=== PATIENT | male | born 1970 | race African-American/Black ===

== ENCOUNTER 2024-06-26 18:30 | Inpatient (IN) | payer OTHER ==
[~2024-06-26] VITALS: Ht 185.4 cm; Wt 89.2 kg
[~2024-06-26 18:30] MED LIST: ASCO-339 PO; DARU800T PO; DOLU50TA PO; ERGO1250 PO; PANTOPRAZOLE 80 MG in SODIUM CHLORIDE 0.9% 100 ML IV SCH; RITO100T PO; SUCR1TAB PO; [UNRECOGNIZED DRUG - OTHER] PO; prenatal vitamin PO
[2024-06-26] MEDS: PANTOPRAZOLE SODIUM 40 MG/VIAL IV STA (19:00)
[2024-06-26] MEDS: SODIUM CHLORIDE 0.9% 1,000 ML IV ONE (19:01)
[2024-06-26 20:24] LABS: MEAN CORPUSCULAR HEMOGLOBIN 29.8 pg (28.0-32.0); MEAN CORPUSCULAR HGB CONC 32.6 g/dL (31.0-37.0); MEAN CORPUSCULAR VOLUME 91.4 fL (80.0-94.0); MEAN PLATELET VOLUME 7.5 fl (7.4-10.4); PLATELET 400 x1000/uL (130-400); RED BLOOD CELL COUNT 1.98 mill/uL (4.7-6.1); WHITE BLOOD COUNT 19.2 x1000/uL (4.5-11.0)
[2024-06-26 20:26] LABS: DIFFERENTIAL COMMENT 1; HEMATOCRIT. 18.1 % (42.0-52.0); HEMOGLOBIN. 5.9 g/dL (14.0-18.0)
[2024-06-26 20:33] LABS: CHLORIDE 109 mEq/L (98-107); POTASSIUM 3.6 mEq/L (3.5-5.1); SODIUM 138 mEq/L (136-145)
[2024-06-26 20:35] LABS: CALCIUM 7.7 mg/dL (8.7-10.4); CARBON DIOXIDE 22 mEq/L (21-32); INR 1.2; PARTIAL THROMBOPLASTIN TIME 31.4 sec (23.4-31.0); PROTHROMBIN TIME 12.9 sec (9.6-11.0)
[2024-06-26 20:38] LABS: ANISOCYTOSIS 1+; PLATELET ESTIMATE NORMAL
[2024-06-26 20:40] LABS: GLUCOSE 127 mg/dL (70-105); UREA NITROGEN BLOOD 37 mg/dL (9-23)
[2024-06-26 20:42] LABS: ALANINE AMINOTRANSFERASE < 7 IU/L (10-49); ALBUMIN 2.4 g/dL (3.2-4.8); ASPARTATE AMINOTRANSFERASE 9 IU/L (<34); BILIRUBIN DIRECT < 0.1 mg/dL (<=3.0); BILIRUBIN TOTAL 0.2 mg/dL (0.1-1.0); PROTEIN TOTAL 4.9 g/dL (6.0-8.3); TROPONIN I HIGH SENSITIVITY 5 ng/L (3.0-53)
[2024-06-26] MEDS ORDERED: PANTOPRAZOLE 80 MG in SODIUM CHLORIDE 0.9% 100 ML IV SCH (20:45)
[2024-06-26] MEDS ORDERED: CEFTRIAXONE 2GM/50ML 50 ML IV NR (20:45)
[2024-06-26 21:04] LABS: CREATININE 5.7 mg/dL (0.6-1.3)
[2024-06-26] MEDS ORDERED: SODIUM BICARBONATE 50 MEQ in DEXT 5%/0.45% NACL 1000ML 1,000 ML IV SCH (21:30)
[2024-06-26] MEDS ORDERED: SODIUM CHLORIDE 0.9% 1,000 ML IV ONE (23:15)
[2024-06-26] MEDS ORDERED: IPRATROPIUM/ALBUTEROL 0.5-3(2.5)MG/3ML NEB HHN PRN (23:15)
[2024-06-26] MEDS ORDERED: ONDANSETRON HCL 4MG/2ML INJ IV PRN (23:15)
[2024-06-26] MEDS ORDERED: ACETAMINOPHEN 325MG TABLET PO PRN (23:15)
[2024-06-26] MEDS ORDERED: CEFTRIAXONE 1GM/50ML 50 ML IV SCH (23:30)
[2024-06-26 23:32] LABS: TROPONIN I HIGH SENSITIVITY 6 ng/L (3.0-53)
[2024-06-26 23:40] LABS: CLARITY URINE CLEAR (CLEAR); COLOR URINE YELLOW (YELLOW); GLUCOSE URINE NEGATIVE (NEGATIVE); KETONES URINE NEGATIVE (NEGATIVE); LEUKOCYTE ESTERASE URINE NEGATIVE (NEGATIVE); NITRITE URINE NEGATIVE (NEGATIVE); OCCULT BLOOD URINE NEGATIVE (NEGATIVE); PH URINE 5.5 (4.5-8.0); PROTEIN URINE 1+ (NEGATIVE); SPECIFIC GRAVITY URINE 1.011 (1.005-1.030); UROBILINOGEN URINE 0.2 E.U./dL (0.2-1.0)
[2024-06-27] VITALS (8 sets, daily range): BP systolic 102–117; BP diastolic 59–84; PULSE 63–110; RESP 15–20; TEMP 36.33624–37.3; O2SAT 100
[2024-06-27 00:02] LABS: BACTERIA URINE NONE SEEN; FINE GRANULAR CASTS URINE 0-5 /lpf; RBC URINE NONE SEEN /hpf (0-2); SQUAMOUS EPITHELIAL CELL URINE RARE /lpf (RARE/1+); WBC URINE 0-2 /hpf (0-2)
[2024-06-27 00:03] LABS: HEPATITIS B SURFACE ANTIGEN NEGATIVE (Negative)
[2024-06-27 00:23] LABS: HEPATITIS A AB IGM NEGATIVE (Negative)
[2024-06-27 00:24] LABS: HEPATITIS B CORE AB IGM NEGATIVE (Negative); HEPATITIS C AB NON REACTIVE (Neg) (Negative)
[2024-06-27] MEDS: SODIUM BICARBONATE 50 MEQ in DEXT 5%/0.45% NACL 1000ML 1,000 ML IV SCH (00:28)
[2024-06-27] MEDS: CALCIUM GLUCONATE 1GM PREMIX 50 ML IV NR (00:30)
[2024-06-27] MEDS ORDERED: SEVELAMER (01:43)
[2024-06-27] MEDS ORDERED: MELO-106 PO (01:43)
[2024-06-27] MEDS ORDERED: POTASSIUM (01:43)
[2024-06-27] MEDS ORDERED: LORA10TA7 PO (01:43)
[2024-06-27] MEDS ORDERED: ASCO500T20 PO (01:43)
[2024-06-27] MEDS ORDERED: BENZ100C86 PO (01:43)
[2024-06-27] MEDS ORDERED: [UNRECOGNIZED DRUG - CODE] (01:43)
[2024-06-27] MEDS ORDERED: PRENATAL (01:43)
[2024-06-27] MEDS ORDERED: NAPR-681 PO (01:43)
[2024-06-27] MEDS ORDERED: CYAN-50 PO (01:43)
[2024-06-27] MEDS ORDERED: ALBUTEROL (01:43)
[2024-06-27 02:39] LABS: HEMATOCRIT 23.7 % (42.0-52.0)
[2024-06-27 02:59] LABS: PHOSPHORUS 4.4 mg/dL (2.5-4.9)
[2024-06-27] MEDS: CEFTRIAXONE 1GM/50ML 50 ML IV SCH (03:35)
[2024-06-27 06:49] LABS: CARBON DIOXIDE 21 mEq/L (21-32); CHLORIDE 111 mEq/L (98-107); POTASSIUM 3.8 mEq/L (3.5-5.1); SODIUM 141 mEq/L (136-145)
[2024-06-27 06:50] LABS: CALCIUM 7.4 mg/dL (8.7-10.4)
[2024-06-27 06:52] LABS: TRIGLYCERIDE 122 mg/dL (0-150)
[2024-06-27 06:53] LABS: HEMATOCRIT. 21.8 % (42.0-52.0); HEMOGLOBIN. 7.3 g/dL (14.0-18.0); MEAN CORPUSCULAR HEMOGLOBIN 28.1 pg (28.0-32.0); MEAN CORPUSCULAR HGB CONC 33.5 g/dL (31.0-37.0); MEAN CORPUSCULAR VOLUME 84.1 fL (80.0-94.0); PLATELET 318 x1000/uL (130-400); RED BLOOD CELL COUNT 2.59 mill/uL (4.7-6.1); RED CELL DISTRIBUTION WIDTH 19.2 % (11.6-14.6); WHITE BLOOD COUNT 15.5 x1000/uL (4.5-11.0)
[2024-06-27 06:54] LABS: UREA NITROGEN BLOOD 51 mg/dL (9-23)
[2024-06-27 06:55] LABS: GLUCOSE 100 mg/dL (70-105)
[2024-06-27 06:56] LABS: ALANINE AMINOTRANSFERASE < 7 IU/L (10-49); LDL CHOLESTEROL 55 mg/dL (5-100); T4 FREE 1.37 ng/dL (0.89-1.76)
[2024-06-27 06:57] LABS: ALBUMIN 2.2 g/dL (3.2-4.8); ASPARTATE AMINOTRANSFERASE 9 IU/L (<34); BILIRUBIN DIRECT < 0.1 mg/dL (<=3.0); BILIRUBIN TOTAL 0.3 mg/dL (0.1-1.0); CHOLESTEROL 104 mg/dL (<200); HDL CHOLESTEROL < 20 mg/dL (>55); PROTEIN TOTAL 4.6 g/dL (6.0-8.3)
[2024-06-27 07:00] LABS: CREATININE 5.9 mg/dL (0.6-1.3)
[2024-06-27 07:29] LABS: DIFFERENTIAL COMMENT 1
[2024-06-27] MEDS: MAGNESIUM 2 G PREMIX 50 ML IV NR (07:47)
[2024-06-27] MEDS ORDERED: DARUNAVIR ETHANOLATE 800 MG TABLET PO SCH (09:00)
[2024-06-27] MEDS ORDERED: SUCRALFATE 1G TABLET PO SCH (09:00)
[2024-06-27] MEDS ORDERED: EPINEPHRINE 0.1MG/ML (1:10,000) 10ML SYR ONE ×2 (10:00→12:32)
[2024-06-27 10:42] LABS: HEMOGLOBIN 7.3 g/dL (14.0-18.0)
[2024-06-27] MEDS ORDERED: ERGO1250 PO (12:05)
[2024-06-27] MEDS ORDERED: AMLO10TA80 PO (12:06)
[2024-06-27] MEDS ORDERED: LOSA50TA41 PO (12:07)
[2024-06-27] MEDS ORDERED: PNV1TABL50 PO (12:08)
[2024-06-27] MEDS ORDERED: SEVE800T8 PO (12:09)
[2024-06-27] MEDS ORDERED: PROPOFOL 200MG/20ML VIAL IV ONE ×4 (12:10→12:57)
[2024-06-27 14:30] LABS: MICROCYTOSIS 1+; PLATELET ESTIMATE NORMAL
[2024-06-27] MEDS: PANTOPRAZOLE SODIUM 40 MG/VIAL IV SCH (15:00)
[2024-06-27] MEDS: PREZISTA 800 MG PO SCH (16:37)
[2024-06-27] MEDS: RITONAVIR 100 MG TABLET PO SCH (16:38)
[2024-06-27] MEDS: SUCRALFATE 1G TABLET PO SCH (16:38)
[2024-06-27 18:03] LABS: CLARITY URINE CLEAR (CLEAR); COLOR URINE YELLOW (YELLOW); GLUCOSE URINE NEGATIVE (NEGATIVE); KETONES URINE NEGATIVE (NEGATIVE); LEUKOCYTE ESTERASE URINE NEGATIVE (NEGATIVE); NITRITE URINE NEGATIVE (NEGATIVE); OCCULT BLOOD URINE NEGATIVE (NEGATIVE); PROTEIN URINE 1+ (NEGATIVE); SPECIFIC GRAVITY URINE 1.011 (1.005-1.030); UROBILINOGEN URINE 0.2 E.U./dL (0.2-1.0)
[2024-06-27 18:19] LABS: WBC URINE 0-2 /hpf (0-2)
[2024-06-27 18:20] LABS: BACTERIA URINE NONE SEEN; RBC URINE 0-2 /hpf (0-2); SQUAMOUS EPITHELIAL CELL URINE RARE /lpf (RARE/1+)
[2024-06-27 18:25] LABS: *AMPHETAMINES SCREEN URINE NEGATIVE (NEGATIVE)
[2024-06-27 18:26] LABS: *BARBITURATES SCREEN URINE NEGATIVE (NEGATIVE); *BENZODIAZEPINES SCREEN URINE NEGATIVE (NEGATIVE); *COCAINE SCREEN URINE NEGATIVE (NEGATIVE); CANNABINOID URINE SCREEN NEGATIVE (NEGATIVE); ECSTASY MDMA SCREEN URINE NEGATIVE (NEGATIVE); METHADONE URINE SCREEN NEGATIVE (NEGATIVE); OPIATES URINE SCREEN NEGATIVE (NEGATIVE)
[2024-06-27 18:37] LABS: PHENCYCLIDINE URINE SCREEN NEGATIVE (NEGATIVE)
[2024-06-27 18:46] LABS: HEMATOCRIT 24.4 % (42.0-52.0); HEMOGLOBIN 7.4 g/dL (14.0-18.0)
[2024-06-27] MEDS ORDERED: FAMOTIDINE 20MG/2ML VIAL IV SCH (21:00)
[2024-06-27] MEDS: SODIUM BICARBONATE 50 MEQ in DEXT 5%/0.45% NACL 1000ML 950 ML IV SCH (21:43)
[2024-06-28] VITALS (12 sets, daily range): BP systolic 102–123; BP diastolic 74–92; PULSE 77–102; RESP 14–21; TEMP 36.7–37.6; O2SAT 91–100
[2024-06-28 04:27] LABS: BASOPHILS % 1.2 % (0.0-2.0); EOSINOPHILS % 1.1 % (0.0-5.0); HEMATOCRIT. 23.1 % (42.0-52.0); HEMOGLOBIN. 7.9 g/dL (14.0-18.0); LYMPHOCYTES % 13.4 % (20.0-50.0); MEAN CORPUSCULAR HEMOGLOBIN 28.4 pg (28.0-32.0); MEAN CORPUSCULAR HGB CONC 34.1 g/dL (31.0-37.0); MEAN CORPUSCULAR VOLUME 83.2 fL (80.0-94.0); MEAN PLATELET VOLUME 7.4 fl (7.4-10.4); NEUTROPHILS % 75.3 % (40.0-76.0); PLATELET 237 x1000/uL (130-400); RED BLOOD CELL COUNT 2.78 mill/uL (4.7-6.1); RED CELL DISTRIBUTION WIDTH 19.5 % (11.6-14.6)
[2024-06-28 04:45] LABS: POTASSIUM 3.4 mEq/L (3.5-5.1)
[2024-06-28 04:46] LABS: CALCIUM 7.7 mg/dL (8.7-10.4)
[2024-06-28 04:51] LABS: CREATININE 4.9 mg/dL (0.6-1.3)
[2024-06-28 04:54] LABS: INR 1.1
[2024-06-28 06:36] LABS: *AMPHETAMINES SCREEN URINE NEGATIVE (NEGATIVE); *BARBITURATES SCREEN URINE NEGATIVE (NEGATIVE); *BENZODIAZEPINES SCREEN URINE NEGATIVE (NEGATIVE); *COCAINE SCREEN URINE NEGATIVE (NEGATIVE); CANNABINOID URINE SCREEN NEGATIVE (NEGATIVE); ECSTASY MDMA SCREEN URINE NEGATIVE (NEGATIVE); METHADONE URINE SCREEN NEGATIVE (NEGATIVE); OPIATES URINE SCREEN NEGATIVE (NEGATIVE); PHENCYCLIDINE URINE SCREEN NEGATIVE (NEGATIVE)
[2024-06-28] MEDS: POTASSIUM CHLORIDE 20MEQ TABLET SR PO NR (09:14)
[2024-06-28 15:04] LABS: HEMATOCRIT 24.6 % (42.0-52.0); HEMOGLOBIN 8.3 g/dL (14.0-18.0)
[2024-06-29] VITALS (12 sets, daily range): BP systolic 109–136; BP diastolic 80–89; PULSE 91–101; RESP 14–18; TEMP 36.9–37.8; O2SAT 98–100
[2024-06-29 06:54] LABS: POTASSIUM 4.1 mEq/L (3.5-5.1)
[2024-06-29 06:55] LABS: CALCIUM 7.8 mg/dL (8.7-10.4)
[2024-06-29 06:56] LABS: INR 1.1; PROTHROMBIN TIME 11.9 sec (9.6-11.0)
[2024-06-29 07:00] LABS: BASOPHILS % 0.5 % (0.0-2.0); CREATININE 4.9 mg/dL (0.6-1.3); EOSINOPHILS % 1.3 % (0.0-5.0); HEMATOCRIT. 23.4 % (42.0-52.0); HEMOGLOBIN. 7.8 g/dL (14.0-18.0); MEAN CORPUSCULAR HEMOGLOBIN 28.2 pg (28.0-32.0); MEAN CORPUSCULAR HGB CONC 33.5 g/dL (31.0-37.0); MEAN CORPUSCULAR VOLUME 84.2 fL (80.0-94.0); MEAN PLATELET VOLUME 7.5 fl (7.4-10.4); MONOCYTES % 8.5 % (2.0-8.0); NEUTROPHILS % 74.7 % (40.0-76.0); PLATELET 232 x1000/uL (130-400); RED BLOOD CELL COUNT 2.78 mill/uL (4.7-6.1); RED CELL DISTRIBUTION WIDTH 18.9 % (11.6-14.6); WHITE BLOOD COUNT 14.2 x1000/uL (4.5-11.0)
[2024-06-29] MEDS ORDERED: SODIUM BICARBONATE 50 MEQ in DEXTROSE 5% WATER 1,000 ML IV SCH (19:30)
[2024-06-29] MEDS: SODIUM BICARBONATE 50 MEQ in DEXTROSE 5% WATER 950 ML IV SCH (20:53)
[2024-06-30] VITALS (10 sets, daily range): BP systolic 113–125; BP diastolic 80–89; PULSE 80–94; RESP 12–16; TEMP 36.7–38.2; O2SAT 98–100
[2024-06-30] MEDS: ACETAMINOPHEN 325MG TABLET PO PRN (08:12)
[2024-06-30 08:18] LABS: HEMATOCRIT 23.7 % (42.0-52.0); HEMOGLOBIN 7.9 g/dL (14.0-18.0); MEAN CORPUSCULAR HEMOGLOBIN 28.6 pg (28.0-32.0); MEAN CORPUSCULAR HGB CONC 33.3 g/dL (31.0-37.0); MEAN CORPUSCULAR VOLUME 85.9 fL (80.0-94.0); PLATELET 209 x1000/uL (130-400); RED BLOOD CELL COUNT 2.75 mill/uL (4.7-6.1); WHITE BLOOD COUNT 13.8 x1000/uL (4.5-11.0)
[2024-06-30] MEDS ORDERED: PANT40TA51 MT (08:34)
[2024-06-30] MEDS ORDERED: SUCR1TAB PO (08:34)
[2024-06-30 08:42] LABS: CALCIUM 7.7 mg/dL (8.7-10.4)
[2024-06-30 08:47] LABS: CREATININE 4.7 mg/dL (0.6-1.3)
[2024-06-30] MEDS ORDERED: SUCR1TAB30 PO (14:43)
== END 2024-06-30 17:02 | disposition home or self-care (01) | DRG 241 ==
LOC: ER 18:30 → EDBEDREQ 20:44 → 5EST 20:44 → EDBEDREQSVC 21:33
PROVIDERS: ADMIT Internal Medicine; ATTEND Internal Medicine
PROC: 30233N1 Transfusion of Nonautologous Red Blood Cells into Peripheral Vein, Percutaneous Approach (ICD-10-PCS; principal; 2024-06-26)
PROC: 0W3P8ZZ Control Bleeding in Gastrointestinal Tract, Via Natural or Artificial Opening Endoscopic (ICD-10-PCS; 2024-06-27)
PROC: 3E0G8GC Introduction of Other Therapeutic Substance into Upper GI, Via Natural or Artificial Opening Endoscopic (ICD-10-PCS; 2024-06-27)
DX: K26.4 Chronic or unspecified duodenal ulcer with hemorrhage (principal); R57.8 Other shock; K22.11 Ulcer of esophagus with bleeding; B20 Human immunodeficiency virus [HIV] disease; R65.10 Systemic inflammatory response syndrome (SIRS) of non-infectious origin without acute organ dysfunction; E87.20 Acidosis, unspecified; I12.0 Hypertensive chronic kidney disease with stage 5 chronic kidney disease or end stage renal disease; E83.51 Hypocalcemia; N18.5 Chronic kidney disease, stage 5; E88.09 Other disorders of plasma-protein metabolism, not elsewhere classified; D62 Acute posthemorrhagic anemia; E86.0 Dehydration; Z91.158 Patient's noncompliance with renal dialysis for other reason; Z87.19 Personal history of other diseases of the digestive system; Z82.49 Family history of ischemic heart disease and other diseases of the circulatory system; Z79.899 Other long term (current) drug therapy
CPT/HCPCS: 36415; 71045; 80048; 80061; 80076; 80305; 81003; 82962; 83605; 83735; 83880; 84100; 84145; 84439; 84443; 84484; 85014; 85018; 85025; 85027; 85044; 86644; 86705; 86709; 86850; 86900; 86920; 87340; 93005; 93970; 99291; A4606; J0610; J0696; J2470; J2704; J3475; J3490; J7030; J7050; J7070; P9016